=== PATIENT | female | born 2000 | race Caucasian/White ===

== ENCOUNTER 2024-03-12 11:07 | Emergency (ER) | payer OTHER ==
[~2024-03-12] VITALS: Ht 165.1 cm; Wt 102.1 kg
[2024-03-13] MEDS ORDERED: HYDHCL25 PO (13:03)
[2024-03-13] MEDS ORDERED: PRENATAL TABLE1 EAC2 PO (13:03)
[2024-03-13] MEDS ORDERED: PROBIOTICS1 EACH PO (13:03)
[2024-03-13] MEDS ORDERED: PROZAC2010 PO (13:03)
== END 2024-03-12 15:12 | disposition home or self-care (01) ==
LOC: ER 11:07
DX: O46.91 Antepartum hemorrhage, unspecified, first trimester (principal); Z3A.01 Less than 8 weeks gestation of pregnancy; Z88.6 Allergy status to analgesic agent; Z88.0 Allergy status to penicillin; Z88.1 Allergy status to other antibiotic agents; Z88.5 Allergy status to narcotic agent
CPT/HCPCS: 76801; 76817; 84702; 99284-25

== ENCOUNTER 2024-03-13 12:02 | Emergency (ER) | payer OTHER ==
[~2024-03-13] VITALS: Ht 165.1 cm; Wt 102.1 kg
[2024-03-13] MEDS ORDERED: PRENATAL TABLE1 EAC2 PO (13:03)
[2024-03-13] MEDS ORDERED: PROBIOTICS1 EACH PO (13:03)
[2024-03-13] MEDS ORDERED: PROZAC2010 PO (13:03)
[2024-03-13] MEDS ORDERED: HYDHCL25 PO (13:03)
[2024-03-13 13:57] LABS: Calcium, Ionized (POC) 1.21 mmol/L (1.10-1.46); Chloride (POC) 103 mmol/L (98-108); Creatinine (POC) 0.6 mg/dL (0.6-1.0); Glucose (ISTAT POC) 93 mg/dL (70-99); Hemoglobin (POC) 14.6 g/dL (12.0-16.0); Sodium (POC) 138 mmol/L (135-148); Total CO2 (POC) 25 mmol/L (21-32)
[2024-03-13 14:00] LABS: BASOPHILS ABSOLUTE AUTO 0.04 K/mm3 (0.00-0.23); BASOPHILS PERCENT AUTO 1 % (0-2); EOSINOPHILS ABSOLUTE AUTO 0.11 K/mm3 (0.00-0.68); EOSINOPHILS PERCENT AUTO 2 % (0-6); Hematocrit 41.5 % (33.0-51.0); Hemoglobin 14.1 g/dL (11.5-16.0); IMMATURE GRAN ABSOLUTE AUTO 0.01 K/mm3 (0.00-0.10); IMMATURE GRAN PERCENT AUTO 0 % (0-1); LYMPHOCYTES ABSOLUTE AUTO 1.94 K/mm3 (0.84-5.20); LYMPHOCYTES PERCENT AUTO 33 % (21-46); MONOCYTES ABSOLUTE AUTO 0.34 K/mm3 (0.16-1.47); MONOCYTES PERCENT AUTO 6 % (4-13); Mean Corpuscular HGB 31.1 pg (26.0-34.0); Mean Corpuscular Volume 92 fL (80-100); Mean Platelet Volume 10.4 fL (9.1-12.4); NEUTROPHILS ABSOLUTE AUTO 3.47 K/mm3 (1.96-9.15); NEUTROPHILS PERCENT AUTO 59 % (41-73); Platelet Count 150 K/mm3 (150-400); Red Blood Cell Count 4.53 M/mm3 (3.80-5.20); White Blood Cell Count 5.91 K/mm3 (4.00-11.30)
[2024-03-13 14:23] LABS: Albumin, Blood 3.9 g/dL (3.4-5.0); Albumin/Globulin Ratio 1.1 (0.8-1.8); Bilirubin, Total 0.9 mg/dL (0.1-1.0); Bun/Creatinine Ratio 17.3 (12.0-20.0); Calcium, Blood 9.1 mg/dL (8.5-10.1); Creatinine, Blood 0.58 mg/dL (0.40-1.00); Globulin, Blood 3.4 g/dL (2.2-4.0); Potassium, Blood 4.1 mmol/L (3.5-5.5); Total Protein, Blood 7.3 g/dL (6.4-8.2)
== END 2024-03-13 15:46 | disposition home or self-care (01) ==
LOC: ER 12:02
PROVIDERS: Physician Assistant
DX: O00.90 Unspecified ectopic pregnancy without intrauterine pregnancy (principal); Z79.899 Other long term (current) drug therapy; Z88.0 Allergy status to penicillin; Z88.1 Allergy status to other antibiotic agents; Z88.5 Allergy status to narcotic agent
CPT/HCPCS: 36415; 76801; 76817; 80047; 80053; 84702; 85014; 85025; 99284-25

== ENCOUNTER 2024-03-14 10:29 | Emergency (ER) | payer OTHER ==
[~2024-03-14] VITALS: Ht 166.4 cm; Wt 102.1 kg
[~2024-03-14 10:29] MED LIST: HYDHCL25 PO; PRENATAL TABLE1 EAC2 PO; PROBIOTICS1 EACH PO; PROZAC2010 PO
[2024-03-14] MEDS ORDERED: Acetaminophen 500 MG Tab PO ONE (11:40)
[2024-03-14] MEDS ORDERED: Methotrexate Sod 2.5 MG Tab PO ONE (14:55)
[2024-03-14] MEDS ORDERED: Methotrexate Sod 25MG / ML 2ML Vial IM SCH (15:10)
== END 2024-03-14 16:03 | disposition home or self-care (01) ==
LOC: ER 10:29
DX: O00.90 Unspecified ectopic pregnancy without intrauterine pregnancy (principal); Z79.899 Other long term (current) drug therapy; Z88.5 Allergy status to narcotic agent; Z88.1 Allergy status to other antibiotic agents
CPT/HCPCS: 76801; 76817; 84702; 96372; 99284-25; A9270; J8610; J9250